=== PATIENT | female | born 1980 | race Asian ===

== ENCOUNTER 2019-03-23 05:55 | Day surgery (SDC) | payer BC ==
[~2019-03-23] VITALS: Ht 171.4 cm; Wt 61.2 kg
[2019-03-23] VITALS (9 sets, daily range): BP systolic 95–116; BP diastolic 60–71
[2019-03-23] MEDS ORDERED: Ropivacaine 5mg/ml Vial 30ml INJ ONE (06:31)
[2019-03-23] MEDS ORDERED: NORTREL 1-35 21 EACH PO (06:36)
[2019-03-23] MEDS ORDERED: BENADRYL25 M3 PO (06:36)
[2019-03-23] MEDS ORDERED: AMOXICILLIN500 MG ORAL (06:36)
[2019-03-23] MEDS ORDERED: MUCINEX600 MG PO (06:36)
[2019-03-23] MEDS ORDERED: cefOXitin Sod 2 GM in D5W 110 ML IVPB ONE (07:00)
[2019-03-23] MEDS ORDERED: Midazolam 2mg/2ml Inj ONE (07:13)
[2019-03-23] MEDS ORDERED: Propofol 200mg/20ml IV ONE ×2 (07:13→08:33)
[2019-03-23] MEDS ORDERED: Lidocaine 1% MPF 10mg/ml 5ml ONE ×2 (07:13→07:14)
[2019-03-23] MEDS ORDERED: fentaNYL 100 mcg/2 mL IV ONE ×2 (07:13→09:00)
[2019-03-23] MEDS ORDERED: Dexamethasone 4mg/ml vial ONE (07:14)
[2019-03-23] MEDS ORDERED: Ketorolac 30mg Inj ONE (07:15)
[2019-03-23] MEDS ORDERED: Rocuronium Bromide 50mg/5ml Inj IV ONE (07:21)
--- NOTE | 2019-03-23 07:24 | Anethesia Preoperative Eval ---
Anesthesia Pre-op PMH/ROS General Date of Evaluation: Mar 23, 2019 Time of Evaluation: 07:23 Anesthesiologist: Viviana Diaz CRNA ASA Score: ASA 1 Mallampati Score Class I : Soft palate, uvula, fauces, pillars visible Class II: Soft palate, uvula, fauces visible Class III: Soft palate, base of uvula visible Class IV: Only hard plate visible Mallampati Classification: Class I Surgeon: Evelyn Diagnosis: uterine fibroids, LEFT ovarian endometrioma Surgical Procedure: hysteroscopy, resection of uterine fibroid, (L) ovaria cystectomy laparosco Family History: no anesthesia problems Allergies: Coded Allergies: No Known Allergies (Unverified , 03/23/19) Medications: see eMAR Patient NPO?: Yes NPO Date: Mar 23, 2019 NPO Time: 00:00 Past Medical History Cardiovascular: Denies: HTN, CAD, DC, valve dz, arrhythmia, other Pulmonary: Denies: asthma, COPD, ASIF, other Gastrointestinal/Genitourinary: Reports: other - uterine fibroids; Denies: GERD, CRI, ESRD Neurologic/Psychiatric: Denies: dementia, CVA, depression/anxiety, TIA, other Endocrine: Denies: DM, hypothyroidism, steroids, other HEENT: Reports: other - allergic rhinitis; Denies: cataract (L), cataract (R), glaucoma, CHEESH-NA (L), CHEESH-NA (R) Hematology/Immune: Denies: anemia, DVT, bleeding disorder, other Musculoskeletal/Integumentary: Denies: OA, RA, DJD, DDD, edema, other PMH Narrative: as noted above PSxH Narrative: tonsillectomy, (B) breast augmentation Anesthesia Pre-op Phys. Exam Physician Exam Last Vital Signs Date Time Temp Pulse Resp B/P (MAP) Pulse Ox O2 Delivery O2 Flow Rate FiO2 03/23/19 06:38 Room Air 03/23/19 06:37 98.4 70 18 105/70 97 Constitutional: NAD Neurologic: other - alert & oriented x 3 Cardiovascular: RRR Respiratory: CTA Gastrointestinal: S/NT/ND Airway Exam Mallampati Score: Class I MO: full Neck: FROM TMD: > 3 FB ROM: full Teeth: intact Dentures: no upper, no lower Anesthesia Pre-op A/P Labs Urine Test Test 03/23/19 06:10 Urine HCG, Qualitative Negative (NEGATIVE) Studies Pre-op Studies: EKG - NSR, other - stress test (-) Risk Assessment & Plan Assessment: ASA 1 ok to proceed Plan: GETA Status Change Before Surgery: No Pre-Antibiotics Drug: Viviana Smith CRNA Mar 23, 2019 07:24
[2019-03-23] MEDS ORDERED: ProvayBlue 5mg/ml 10ml amp INJ ONE (07:30)
[2019-03-23] MEDS ORDERED: NS Irrig 2000ml IRRIG ONE (07:40)
[2019-03-23] MEDS ORDERED: LR 1000ml ONE ×2 (07:40→13:05)
[2019-03-23] MEDS ORDERED: Sterile Water Irrig 1000ml IRRIG ONE ×2 (07:40→13:05)
--- NOTE | 2019-03-23 07:44 | Pre-Procedure Note/Attestation ---
Pre-Procedure Note/Attestation Complete Prior to Procedure Planned Procedure: left Procedure Narrative: laparoscopy, left ovarian cystectomy clear view myomectomy, dilation and possible curettage Indications for Procedure Pre-Operative Diagnosis: left ovarian cyst- probably endometrioma and submucous fibroid Attestation I attest that I discussed the nature of the procedure; its benefits; risks and complications; and alternatives (and the risks and benefits of such alternatives ), prior to the procedure, with the patient (or the patient's legal public relations representative). I attest that, if there was a reasonable possibility of needing a blood transfusion, the patient (or the patient's legal public relations representative) was given the [place] [employer] standardized written summary, pursuant to the [place] Blood Safety Act ([place] Health and Safety Code # 1645, as amended). I attest that I re-evaluated the patient just prior to the surgery and that there has been no change in the patient's H&P, except as documented below: Kimberlee Rivas MD Mar 23, 2019 07:44
[2019-03-23] MEDS ORDERED: Tylenol #3 tab (300mg/30mg) ORAL PRN (07:45)
[2019-03-23] MEDS ORDERED: HYDROcodone/Acetamin 5/325 tab ORAL PRN (07:45)
[2019-03-23] MEDS ORDERED: Metoclopramide 10mg/2ml Inj IVP PRN ×2 (07:45→12:30)
[2019-03-23] MEDS ORDERED: DiphenhydrAMINE 50mg/ml Inj IVP PRN ×2 (07:45→09:15)
[2019-03-23] MEDS ORDERED: HYDROmorphone 1mg/ml Carpuject SUBQ PRN (07:45)
--- NOTE | 2019-03-23 09:11 | Immediate Post-Op Evaluation ---
Immediate Post-Op Evalulation Immediate Post-Op Evalulation Procedure: laparoscopic LT ovarian cystectomy, hysteroscopy, resection uterine fibroid Date of Evaluation: Mar 23, 2019 Time of Evaluation: 10:05 IV Fluids: LR 1100 ml Blood Pressure Systolic: 112 Blood Pressure Diastolic: 70 Pulse Rate: 77 Respiratory Rate: 16 O2 Sat by Pulse Oximetry: 100 Pain Score (1-10): 4 Nausea: No Vomiting: No Patient Status: awake, reacts, patent Hydration Status: adequate Drug: Cefazolin 1000mg IV Given Within 1 Hr of Incision: Yes Time Given: 08:00 Viviana Diaz CRNA Mar 23, 2019 09:11
[2019-03-23] MEDS ORDERED: Meperidine 50mg/ml Inj(FOR RIGORS ONLY) IVP PRN (09:15)
[2019-03-23] MEDS ORDERED: Hydromorphone 0.5mg/0.5ml inj IVP PRN (09:15)
[2019-03-23] MEDS ORDERED: Neostigmine 1mg/ml 10ml Inj ONE (09:32)
[2019-03-23] MEDS ORDERED: Glycopyrrolate 0.2mg/ml 1ml Vial ONE (09:32)
--- NOTE | 2019-03-23 10:11 | Brief Operative Note ---
Immediate Post Operative Note Operative Note Pre-op Diagnosis: left ovarian cyst- probably endometrioma and submucous fibroid Procedure: Laparoscopy, left ovarian cystectomy, hysteroscopy True Clear myomectomy, polypectomy, lysis of sigmoid colon to anterior abdominal wall adhesions as well as ovary to uterus adhesions Post-op Diagnosis: endometriosis/ adhesions/ 2 cm submucous fibroid and 5 cm left endometrioma Surgeon: anuj Rivas M.D. Telecommunicator Supervisor: Farzaneh Crowley M.D. Anesthesiologist: Viviana Chris Anesthesia: general Specimen: yes Complications: none Condition: stable Fluids: crystalloid Estimated Blood Loss: minimal Drains: none Implant(s) used?: No Anuj Rivas MD Mar 23, 2019 10:11
--- NOTE | 2019-03-23 11:23 | 48 Hour Post Anesthesia Eval ---
Post Anesthesia Evaluation Procedure: laparoscopic LT ovarian cystectomy, hysteroscopy, resection uterine fibroid Date of Evaluation: Mar 23, 2019 Time of Evaluation: 11:22 Blood Pressure Systolic: 102 - 62 0: 62 Pulse Rate: 60 Respiratory Rate: 15 Temperature (Fahrenheit): 98.4 O2 Sat by Pulse Oximetry: 100 Nausea: No Vomiting: No Pain Intensity: 2 Hydration Status: adequate Cardiopulmonary Status: stable Mental Status/LOC: patient returned to baseline Follow-up Care/Observations: per gyne Post-Anesthesia Complications: none Follow-up care needed: N/A Viviana Diaz CRNA Mar 23, 2019 11:23
[2019-03-23] MEDS ORDERED: NS Irrig 1000ml ONE (13:05)
[2019-03-23] MEDS ORDERED: NS Irrig 4000ml IRRIG ONE (13:05)
--- NOTE | 2019-03-23 16:30 | Operative Note - Dictated ---
DATE OF OPERATION: 03/23/2019 PREOPERATIVE DIAGNOSES: Submucosal fibroid and left ovarian cyst. POSTOPERATIVE DIAGNOSES: Submucosal fibroid, left ovarian cyst, adhesions and left endometrioma, submucosal fibroid and endometrial polyp. SURGEON: Kimberlee Rivas M.D. PRINT DECORATOR: Farzaneh Crowley M.D. ANESTHESIOLOGIST: Viviana Diaz CRNA. ANESTHESIA: General endotracheal. PATHOLOGY SPECIMEN: Left ovarian cyst as well as shavings from the uterus including polyp and fibroid. ESTIMATED BLOOD LOSS: Minimal. PROCEDURE IN DETAIL: After ensuring informed consent, the patient was taken to the operating room where general anesthesia was induced. The patient was sterilely prepped and draped. The cervix was dilated to a 7 Hegar dilator. The trochlear hysteroscope was primed and placed inside the uterine cavity. Uterine cavity was distended with normal saline. Uterine cavity was explored. There was a right posterior polyp and left posterior fibroid approximately 2 cm in diameter. Using the trochlear device, both the polyp and the fibroid were easily resected with minimal blood loss. At the end of the procedure, a HUMI type uterine manipulator was placed into the uterus and balloon inflated. Attention was turned to the abdomen where a small incision was made inside the umbilicus after infiltration with local. Veress needle was placed inside the peritoneal cavity. Intraperitoneal placement was confirmed with low opening pressures. A 5 mm trocar was placed inside the intraumbilical incision and intraperitoneal placement was confirmed with the camera. The pelvis was explored. There was a left ovarian cyst and adhesions visible between the sigmoid and the anterior abdominal wall to the appendectomy scar. Left lateral 5 mm incision was made after infiltration with local and a 5 mm trocar was placed. Using sharp cautery and coagulation where necessary, the adhesions were taken off of the anterior abdominal wall. A 5 mm trocar was placed in the appendical scar after infiltration with local. Attention was turned to the pelvis where the left ovary was adherent to the posterior cul-de-sac. The left ovary was grasped and was sharply and bluntly dissected from the posterior uterus to which it was adherent. The left ovary was opened over the cyst. This was grasped with graspers with teeth and both sharply and bluntly dissected off of the underlying ovarian stroma. Once the cyst was completely resected, ovary was irrigated and judicious use of cautery was used to obtain excellent hemostasis. Pelvis was copiously irrigated with approximately 2 liters of normal saline. Everything was suctioned off. The cyst was removed through the lateral 5 mm trocar. All trocars were removed under direct visualization. The patient was taken to the recovery area extubated and in stable condition. Skin was closed with Steri-Strips. At the end of the procedure, all instrument and lap count was correct x2. Kimberlee Rivas M.D. DR: MARCOS JOB#: [id number] CC:
[2019-03-23] MEDS ORDERED: D5 1/2NS 1,000 ML IV SCH (17:00)
== END 2019-03-23 11:45 | disposition home or self-care (01) ==
LOC: SUR 05:55
DX: D25.0 Submucous leiomyoma of uterus (principal); N83.202 Unspecified ovarian cyst, left side; N84.0 Polyp of corpus uteri
CPT/HCPCS: 58558; 58662; 81025; J0690; J1100; J1885; J2250; J2405; J2704; J2710; J2765; J2795; J3010; J7120; Q9968; 94003; 94150